=== PATIENT | female | born 1945 | race Caucasian/White ===

== ENCOUNTER 2023-12-11 07:13 | Day surgery (SDC) | payer MEDICARE, BC ==
[2023-12-11] MEDS ORDERED: fentaNYL 50 MCG/ML SDV ONE (07:28)
[2023-12-11] MEDS ORDERED: Propofol 200 MG/20 ML SDV ONE (07:28)
[2023-12-11] MEDS: Sodium Chloride 0.9% 1,000 ML IV SCH (07:49)
[2023-12-11] MEDS ORDERED: Ondansetron 4 MG/2 ML SDV ONE (08:41)
[2023-12-11] MEDS ORDERED: Atropine 0.4 MG/ML SDV ONE (08:44)
== END 2023-12-11 10:18 | disposition home or self-care (01) ==
LOC: JP.SDS 07:13
PROVIDERS: ATTEND Surgery
DX: Z12.11 Encounter for screening for malignant neoplasm of colon (principal); K57.30 Diverticulosis of large intestine without perforation or abscess without bleeding; E66.9 Obesity, unspecified; G47.33 Obstructive sleep apnea (adult) (pediatric); E78.5 Hyperlipidemia, unspecified
CPT/HCPCS: 00811-QZ; J0461; J2405; J2704; J3010; J7030